=== PATIENT | female | born 1940 | race Caucasian/White ===

== ENCOUNTER 2019-04-03 14:58 | Outpatient (CLI) | payer MEDICARE ==
--- NOTE | 2019-04-03 15:58 | MMO ---
Right Breast MAMMO Unilat Diag [facility]. CLINICAL HISTORY: Patient is 78 years old and is seen for diagnostic exam and lump or thickening in the right breast. The patient has the following family history of breast cancer: daughter, at age 33. The patient has no personal history of cancer. VIEWS: The views performed were: right craniocaudal with tomosynthesis; right mediolateral oblique with tomosynthesis; and right mediolateral with tomosynthesis. FILMS COMPARED: The present examination has been compared to prior imaging studies performed at [facility] on 04/03/2019, and at [facility] on 10/02/2014, 11/07/2016 and 07/11/2018. MAMMOGRAM FINDINGS: There are scattered fibroglandular densities. Finding 1: There are no mammographic or sonographic abnormalities in the area of palpable concern. The patient is referred back to her clinician. Negative imaging findings should not preclude biopsy if clinical findings are suspicious. Finding 2: There are stable benign appearing calcifications seen in the right breast. There are also vascular calcifications. Nodularity is stable. There are no suspicious masses, suspicious calcifications, or new areas of architectural distortion. IMPRESSION: FINDING 1: THERE ARE NO MAMMOGRAPHIC ABNORMALITIES IN THE AREA OF PALPABLE CONCERN. THE PATIENT IS REFERRED BACK TO HER CLINICIAN. NEGATIVE IMAGING FINDINGS SHOULD NOT PRECLUDE BIOPSY IF CLINICAL FINDINGS ARE SUSPICIOUS. THE RESULTS OF THIS EXAM WERE SENT TO THE PATIENT. ACR BI-RADS Category 2 - Benign finding MAMMOGRAPHY NOTE: 1. A negative mammogram report should not delay a biopsy if a dominant of clinically suspicious mass is present. 2. Approximately 10% to 15% of breast cancers are not detected by mammography. 3. Adenosis and dense breasts may obscure an underlying neoplasm. Reported by: DEE DEE XIONG MD Electonically Signed: [id number]
--- NOTE | 2019-04-03 16:00 | ULT ---
LIMITED RIGHT BREAST ULTRASOUND: 04/03/19 PROVIDED CLINICAL HISTORY: Right breast palpable abnormality. FINDINGS: Limited sonographic interrogation was performed of the right breast in the region of palpable concern . The sonographic appearance of the breast parenchyma in this region appears normal. IMPRESSION: No sonographic correlate for the reported palpable finding. Negative imaging findings should not prec lude further evaluation of a clinically suspicious area. The patient is referred back to her clinicia n. BIRADS 2: Benign Finding(s) Routine annual screening mammography (for women over age 40). POS: OFF
== END 2019-04-03 14:59 | disposition home or self-care (01) ==
LOC: BICMAMMO 14:58
PROVIDERS: ATTEND Specialist
DX: N60.01 Solitary cyst of right breast (principal)
CPT/HCPCS: 76642; 77065; G0279

== ENCOUNTER 2019-04-25 10:14 | Emergency (ER) | payer MEDICARE ==
[2019-04-25 11:01] LABS: #Eosinphils 0.1 thou/uL (0.0-0.7); #Monocytes 0.7 thou/uL (0.11-0.59); #Neutrophils 5.9 thou/uL (1.40-6.50); %Basophils 0.5 % (0.0-1.0); %Monocytes 8.3 % (0.0-10.0); %Neutrophils 67.3 % (42.0-75.0); Hemoglobin 14.2 g/dL (12.0-16.0); Mean Corpuscular HGB CONC 32.9 g/dL (32.0-36.0); Mean Corpuscular Hemoglobin 28.2 pg (27.0-31.0); Mean Corpuscular Volume 85.6 fL (78.0-98.0); Mean Platelet Volume 8.6 fL (7.4-10.4); Platelet Count 298 thou/uL (130-400); RBC Distribution Width 13.6 % (11.5-14.5); Red Blood Cell (RBC) Count 5.05 mill/uL (4.20-5.40); White Blood Cell (WBC) Count 8.7 thou/uL (4.8-10.8)
[2019-04-25] MEDS ORDERED: Ketorolac Tromethamine 30 MG/ML VIAL ONE (11:02)
[2019-04-25] MEDS ORDERED: Metoclopramide HCl 10 MG/2 ML VIAL ONE (11:02)
[2019-04-25 11:25] LABS: ALT (SGPT) 8 U/L (8-55); AST (SGOT) 13 U/L (5-34); Albumin 4.3 g/dL (3.4-4.8); Alkaline Phosphatase 71 U/L (40-110); Anion Gap 12 mmol/L (10-20); BUN (Urea Nitrogen) 20 mg/dL (9.8-20.1); Bilirubin, Total 0.6 mg/dL (0.2-1.2); CK (CPK) 34 U/L (29-168); Calc. Creatinine Clearance 0 mL/min (70-130); Calcium 9.8 mg/dL (7.8-10.44); Carbon Dioxide 27 mmol/L (23-31); Chloride 103 mmol/L (98-107); Estimated GFR-MDRD 71; Globulin 3.1 g/dL (2.4-3.5); Glucose 98 mg/dL (83-110); Lipase 19 U/L (8-78); Potassium 3.9 mmol/L (3.5-5.1); Protein, Total 7.4 g/dL (6.0-8.3); Sodium 138 mmol/L (136-145)
--- NOTE | 2019-04-25 12:08 | RAD ---
SINGLE VIEW CHEST: Date: 04/25/19 COMPARISON: None. HISTORY: Dizziness and cough. FINDINGS: Single view of the chest shows a normal sized cardiomediastinal silhouette. There is no evidence of c onsolidation, mass, or pleural effusion. The bones are unremarkable. IMPRESSION: No evidence of acute cardiopulmonary disease. POS: [facility]PC
== END 2019-04-25 12:28 | disposition home or self-care (01) ==
LOC: ERS 10:14
DX: G43.909 Migraine, unspecified, not intractable, without status migrainosus (principal); E78.5 Hyperlipidemia, unspecified; E78.00 Pure hypercholesterolemia, unspecified; I10 Essential (primary) hypertension; F41.9 Anxiety disorder, unspecified
CPT/HCPCS: 71045; 80053; 82550; 83690; 84484; 85025; 93005; 96365; 96375; J1885; J2765

== ENCOUNTER 2021-03-18 | Outpatient (CLI) | payer MEDICARE | END 2021-03-18 09:37 | disposition home or self-care (01) ==

== ENCOUNTER 2023-07-17 23:28 | Inpatient (IN) | payer MEDICARE, SELFPAY ==
[~2023-07-17 23:28] MED LIST: Iopamidol 370 76% 100 ML VIAL ONE
[2023-07-18] MEDS ORDERED: Acetaminophen 500 MG TAB ONE (00:07)
[2023-07-18 00:19] LABS: #Eosinphils 0.1 thou/uL (0.0-0.7); #Monocytes 0.9 thou/uL (0.11-0.59); %Basophils 0.3 % (0.0-1.0); %Eosinophils 1.4 % (0.0-10.0); %Lymphocytes 8.7 % (21.0-51.0); %Monocytes 10.4 % (0.0-10.0); Hematocrit 36.5 % (36.0-47.0); Hemoglobin 12.1 g/dL (12.0-16.0); Mean Corpuscular HGB CONC 33.2 g/dL (32.0-36.0); Mean Corpuscular Hemoglobin 29.7 pg (27.0-31.0); Mean Corpuscular Volume 89.5 fl (78.0-98.0); Mean Platelet Volume 10.4 fL (7.4-10.4); Platelet Count 230 10x3/uL (130-400); RBC Distribution Width 13.7 % (11.5-14.5); Red Blood Cell (RBC) Count 4.08 mill/uL (4.20-5.40); White Blood Cell (WBC) Count 8.9 10x3/uL (4.8-10.8)
[2023-07-18 00:38] LABS: ALT (SGPT) 8 U/L (8-55); AST (SGOT) 14 U/L (5-34); Albumin 3.6 g/dL (3.4-4.8); Alkaline Phosphatase 78 U/L (40-110); Anion Gap 13 mmol/L (10-20); BUN (Urea Nitrogen) 24 mg/dL (9.8-20.1); Bilirubin, Total 0.6 mg/dL (0.2-1.2); Calc. Creatinine Clearance 0 mL/min (70-130); Calcium 9.4 mg/dL (7.8-10.44); Carbon Dioxide 26 mmol/L (23-31); Chloride 102 mmol/L (98-107); Estimated GFR 75; Globulin 2.6 g/dL (2.4-3.5); Glucose 100 mg/dL (83-110); Magnesium 1.8 mg/dL (1.6-2.6); Potassium 3.6 mmol/L (3.5-5.1); Protein, Total 6.2 g/dL (5.8-8.1); Sodium 137 mmol/L (136-145)
[2023-07-18 02:19] LABS: SARS-CoV-2 NAA Rapid Test Not Detected (NotDetected)
[2023-07-18] MEDS ORDERED: diphenhydrAMINE 50 MG/ML VIAL ONE (02:54)
[2023-07-18] MEDS ORDERED: Prochlorperazine 10 MG/2 ML VIAL ONE (02:54)
[2023-07-18] MEDS ORDERED: Ondansetron ODT 4 MG TAB PO PRN (03:18)
[2023-07-18] MEDS ORDERED: Calcium Carbonate 500 MG ChewTAB PO PRN (03:18)
[2023-07-18 03:53] LABS: Troponin I 0.021 ng/mL (< 0.028)
[2023-07-18] MEDS ORDERED: Oseltamivir 75 MG CAP PO SCH (04:00)
[2023-07-18 04:36] VITALS: BMI 35.1
[2023-07-18 05:43] LABS: Anion Gap 13 mmol/L (10-20); BUN (Urea Nitrogen) 21 mg/dL (9.8-20.1); Calc. Creatinine Clearance 87 mL/min (70-130); Carbon Dioxide 24 mmol/L (23-31); Chloride 105 mmol/L (98-107); Estimated GFR 79; Glucose 94 mg/dL (83-110); Potassium 3.3 mmol/L (3.5-5.1); Sodium 139 mmol/L (136-145)
[2023-07-18 05:49] LABS: Calcium 8.9 mg/dL (7.8-10.44)
[2023-07-18 06:16] LABS: #Eosinphils 0.1 thou/uL (0.0-0.7); #Monocytes 0.8 thou/uL (0.11-0.59); #Neutrophils 4.4 thou/uL (1.40-6.50); %Basophils 0.5 % (0.0-1.0); %Eosinophils 1.6 % (0.0-10.0); %Lymphocytes 13.1 % (21.0-51.0); %Monocytes 12.9 % (0.0-10.0); %Neutrophils 71.7 % (42.0-75.0); Hematocrit 35.7 % (36.0-47.0); Hemoglobin 11.5 g/dL (12.0-16.0); Mean Corpuscular HGB CONC 32.2 g/dL (32.0-36.0); Mean Corpuscular Hemoglobin 29.3 pg (27.0-31.0); Mean Corpuscular Volume 90.8 fl (78.0-98.0); Mean Platelet Volume 10.3 fL (7.4-10.4); Platelet Count 206 10x3/uL (130-400); RBC Distribution Width 13.8 % (11.5-14.5); Red Blood Cell (RBC) Count 3.93 mill/uL (4.20-5.40); White Blood Cell (WBC) Count 6.1 10x3/uL (4.8-10.8)
[2023-07-18 06:45] LABS: Troponin I 0.029 ng/mL (< 0.028)
[2023-07-18] MEDS: Famotidine 20 MG TAB PO SCH ×2 (09:32→19:24)
[2023-07-18] MEDS: Acetaminophen 325 MG TAB PO PRN ×2 (09:35→19:24)
[2023-07-18] MEDS ORDERED: Hydrochlorothiazide 25 MG TAB PO SCH (20:15)
[2023-07-19] MEDS: Potassium Chloride 20 MEQ TAB PO SCH ×2 (08:45→14:33)
[2023-07-19] MEDS: Famotidine 20 MG TAB PO SCH (08:46)
[2023-07-19] MEDS ORDERED: Hydrochlorothiazide 25 MG TAB PO SCH (09:00)
[2023-07-19] MEDS ORDERED: Loratadine 10 MG TAB PO SCH (09:00)
[2023-07-19] MEDS ORDERED: Losartan 25 MG TAB PO SCH (09:00)
[2023-07-19] MEDS ORDERED: CO Q-10 CAPSULE 100 MG PO SCH (09:00)
[2023-07-19] MEDS ORDERED: Escitalopram Oxalate 10 mg Tablet PO SCH (09:00)
[2023-07-19] MEDS ORDERED: VIT C PO SCH (09:00)
[2023-07-19] MEDS ORDERED: Magnesium Oxide 250 MG TAB PO SCH (09:00)
[2023-07-19] MEDS ORDERED: Zinc Gluconate [Zinc] 30 MG Tablet PO SCH (09:00)
[2023-07-19] MEDS ORDERED: CRANBERRY FRUIT EXTRACT PO SCH (09:00)
[2023-07-19] MEDS ORDERED: ELDERBERRY FRUIT 350 MG PO SCH (09:00)
[2023-07-19 11:30] VITALS: BP 145/70; TEMP 97.9
[2023-07-19] MEDS ORDERED: Zinc Sulfate 220 MG CAP PO SCH (14:30)
[2023-07-19] MEDS ORDERED: Atorvastatin Calcium 40 MG TAB PO SCH (21:00)
[2023-07-20] MEDS ORDERED: Zinc Sulfate 220 MG CAP PO SCH (09:00)
[2023-07-20] MEDS ORDERED: Aspirin 81 mg Enteric Coated Tablet PO SCH (09:00)
== END 2023-07-19 16:50 | disposition home or self-care (01) | DRG 149 ==
LOC: ERS 23:28 → 2NO 07-18 02:25
PROVIDERS: ADMIT Student in an Organized Health Care Education/Training Program; ATTEND Nurse Practitioner Acute Care
DX: R42 Dizziness and giddiness (principal); I65.21 Occlusion and stenosis of right carotid artery; J10.1 Influenza due to other identified influenza virus with other respiratory manifestations; Z88.0 Allergy status to penicillin; E78.00 Pure hypercholesterolemia, unspecified; I10 Essential (primary) hypertension; Z96.653 Presence of artificial knee joint, bilateral; Z98.51 Tubal ligation status; F41.9 Anxiety disorder, unspecified; Z90.49 Acquired absence of other specified parts of digestive tract; M79.89 Other specified soft tissue disorders; Z11.52 Encounter for screening for COVID-19; Z79.899 Other long term (current) drug therapy
CPT/HCPCS: 36415; 70496; 70498; 70551; 71045; 80053; 83605; 83735; 83880; 84484; 85025; 87040; 93005; 93306; 96361; 96374; 96375; J0780; J1200; Q9967